=== PATIENT | female | born 1985 | race Caucasian/White ===

== ENCOUNTER 2024-07-07 04:18 | Day surgery (SDC) | payer OTHER ==
[~2024-07-07] VITALS: Ht 177.8 cm; Wt 83.0 kg
[2024-07-07] VITALS (218 sets, daily range): BP systolic 109–170; BP diastolic 69–144
[2024-07-07] MEDS ORDERED: PANTOPRAZOLE SODIUM Sesquihydr 40 MG/TAB PO PRN (06:00)
[2024-07-07] MEDS ORDERED: cloNIDine HCL 0.1 MG/TAB PO PRN (06:00)
[2024-07-07] MEDS ORDERED: LACTATED RINGER'S 1,000 ML IV PRN ×3 (06:00→19:00)
[2024-07-07] MEDS ORDERED: diazePAM 5 MG/TAB PO PRN ×2 (06:00→07:00)
[2024-07-07] MEDS ORDERED: FAMOTIDINE 20 MG/TAB PO PRN (06:00)
[2024-07-07] MEDS ORDERED: CYANOCOBALAMIN 500 MCG/TAB ( B12) PO PRN (06:00)
[2024-07-07] MEDS ORDERED: ALBUTEROL SULFATE 2.5 MG VIAL IN PRN (06:00)
[2024-07-07] MEDS ORDERED: SCOPOLAMINE 1.5 MG DIS TD PRN (06:00)
--- NOTE | 2024-07-07 06:00 | NUR ---
Arrival & Pre-treatment Patient arrived to the [facility] suite, identification and demographics confirmed. Patient to room 8, AAO, ambulatory, vitals obtained, ID/allergy/fall bands placed, changed into hospital gown, DANIELE hose, and non-slip socks. Procedure and timeline explained for treatment and discharge. All questions answered and the patient presents no concerns at this time.
--- NOTE | 2024-07-07 06:40 | NUR ---
Dr. Rojas telephoned with patient intake information including usage, dose, last dose/time taken and initial vital signs. Patient history and allergies reviewed with MD. Orders received for 10 mg PO Valium and 0.2 mg PO Clonidine now. Will reassess per protocol in 1.5 hours and update MD with assessment and vitals. Patient medicated per MD orders. In addition to Clonidine and Valium, patient received 1000 mcg B12 PO, 20 mg Pepcid PO, and Scopolamine TD patch. Medication indication and education provided prior to administration.
--- NOTE | 2024-07-07 06:40 | NUR ---
telephoned with patient intake information including usage, dose, last dose/time taken and initial vital signs. Patient history and allergies reviewed with MD. Orders received for 10mg PO Valium and 0.2 mg PO Clonidine now. Will reassess per protocol in 1.5 hours and update MD with assessment and vitals. Patient medicated per MD orders. In addition to Clonidine and Valium, patient received 1000 mcg B12 PO, 20 mg Pepcid PO, and Scopolamine TD patch. Medication indication and education provided prior to administration.
[2024-07-07] MEDS ORDERED: ASCORBIC ACID 4,000 MG in SODIUM CHLORIDE 0.9% 1,000 ML IV SCH (07:00)
[2024-07-07 07:32] LABS: BASO% 0.7 % (0-3); EOS% 2.6 % (0-8); HEMATOCRIT 34.5 % (39.0-50.0); HEMOGLOBIN 11.2 g/dl (14.0-18.0); IMMATURE GRANULOCYTES 0.2 % (0.0-5.0); LYMPH% 39.8 % (15-41); MEAN CELL VOLUME 103.6 fL CALC (80.0-100.0); MEAN CORPUSCULAR HGB 33.6 pG CALC (26.0-32.0); MEAN CORPUSCULAR HGB CONC 32.5 g/dL CAL (32.0-36.0); MONO% 11.4 % (2-13); NEUT# 2.07 thou/uL (1.82-7.42); NEUT% 45.3 % (42-76); RED BLOOD COUNT 3.33 mill/uL (4.70-6.10); RED CELL DISTRI WIDTH 18.5 % (11.5-15.5)
[2024-07-07 07:49] LABS: ALBUMIN 3.7 g/dL (3.2-5.0); BILIRUBIN, TOTAL 0.6 mg/dL (0.2-1.3); CREATININE 0.5 mg/dL (0.7-1.3); POTASSIUM 4.4 mmol/l (3.5-5.1); TOTAL PROTEIN 6.2 g/dL (6.3-8.2)
--- NOTE | 2024-07-07 07:56 | NUR ---
Patient resting comfortably in bed. Easily aroused, maintains focus, and drifts back to sleep. No signs of active withdrawal or distress noted at this time. Continuous SPO2, rhythm, and respiratory monitoring initiated. IVF @ 250 mL/HR, room air, VSS.
[2024-07-07] MEDS ORDERED: UBRELVY100 MG (08:10)
[2024-07-07] MEDS ORDERED: CYMBALTA30 MG PO (08:11)
[2024-07-07] MEDS ORDERED: MAXALT10 MG PO (08:11)
[2024-07-07] MEDS ORDERED: AMITRIPTYLINE H10 MG PO (08:13)
--- NOTE | 2024-07-07 09:00 | NUR ---
Patients vital signs within pre-treatment parameters for 1.5 hour recheck. No indication for additional Valium or Clonidine as patient is resting comfortably and vital signs are within range.
[2024-07-07] MEDS ORDERED: ONDANSETRON HCl 4 MG/2 ML SDV IV PRN ×3 (09:25→19:00)
[2024-07-07] MEDS ORDERED: STERILE WATER FOR IRRIGATION 1,000 ML BTL IR PRN (09:25)
[2024-07-07] MEDS ORDERED: DiphenhydrAMINE HCL 50 MG/ML SDV IV PRN (09:25)
[2024-07-07] MEDS ORDERED: THIAMINE HCL 100 MG/ML 2ML VIAL IV PRN (09:25)
[2024-07-07] MEDS ORDERED: LIDOCAINE HCL 1% (10MG/ML) 100 MG/10 ML MDV IV PRN (09:25)
[2024-07-07] MEDS ORDERED: diazePAM 5 MG/TAB VT PRN (09:25)
[2024-07-07] MEDS ORDERED: NALTREXONE HCL 50 MG/TAB VT PRN (09:25)
[2024-07-07] MEDS ORDERED: ROCURONIUM BROMIDE 10 MG/ML 5ML VIAL IV PRN (09:25)
[2024-07-07] MEDS ORDERED: MIDAZOLAM HCL 2 MG/2 ML VIAL IV PRN (09:25)
[2024-07-07] MEDS ORDERED: LIDOCAINE HCL 1% (10MG/ML) 100 MG/10 ML MDV VT PRN ×2 (09:25)
[2024-07-07] MEDS ORDERED: DEXAMETHASONE SODIUM PHOSPHATE PF 10 MG/ML SDV IV PRN ×2 (09:25→19:00)
[2024-07-07] MEDS ORDERED: cloNIDine HCL 0.1 MG/TAB VT PRN (09:25)
[2024-07-07] MEDS ORDERED: OCTREOTIDE ACETATE 100 MCG/VIAL SDV SC PRN (09:25)
[2024-07-07] MEDS ORDERED: PROPOFOL 100 ML IV PRN (09:25)
[2024-07-07] MEDS ORDERED: SUCCINYLCHOLINE CHLORIDE 20 MG/ML 10ML VIAL IV PRN (09:25)
[2024-07-07] MEDS ORDERED: MAGNESIUM SULFATE HEPTAHYDRATE 100 ML IV PRN (09:25)
[2024-07-07] MEDS ORDERED: POTASSIUM CHLORIDE 20 MEQ/100 ML BAG IV PRN (09:25)
[2024-07-07] MEDS ORDERED: cloNIDine HYDROCHLORIDE 100 MCG/ML 10 ML INJ IV PRN (09:25)
[2024-07-07] MEDS ORDERED: PROPOFOL 10 MG/ML 100ML VIAL IV PRN (09:25)
[2024-07-07] MEDS ORDERED: PHENYLEPHRINE HCL 10 MG/ML VIAL ONE (09:29)
[2024-07-07] MEDS ORDERED: SODIUM CHLORIDE 0.9% 250 ML IV ONE (09:31)
--- NOTE | 2024-07-07 10:15 | NUR ---
Induction Note Patient to [facility] procedure room. Time out performed at 1016. Patient placed on monitors, Maximilian hugger, bilateral wrist restraints applied for ET tube protection. Versed 5mg given IV push at 1016. Tourniquet applied to RIGHT arm Lidocaine 100mg given at 1017 IV push followed by Rocoronium 10mg at IV push and held for 90 seconds. Propofol bolus of 200mg given at 1020 IV push. Succinylcholine 100mg given IV push at 1021. Smooth intubation with 7.5 ETT. Positive CO2. Positive Auscultation for air exchange. Patient placed on ventilator for spontaneous ventilation. Placed on Propofol IV drip at 1022. OG inserted. Positive air on auscultation. Positive gastric content. Stomach washed at this time.
--- NOTE | 2024-07-07 10:45 | NUR ---
OG close note Stomach washed at this time. Naltrexone 50 mg with Clonidine 0.3 mg via OG tube. OG will be clamped for 45 minutes.
--- NOTE | 2024-07-07 11:30 | NUR ---
OG open note OG open at this time. Gastric content draining into drainage bag. OG to drain for 45 minutes. Propofol will be titrated down based on patient.
[2024-07-07] MEDS ORDERED: MIDAZOLAM HCL 2 MG/2 ML VIAL IV SCH (12:00)
[2024-07-07] MEDS ORDERED: cloNIDine HYDROCHLORIDE 100 MCG/ML 10 ML INJ IV SCH (12:00)
--- NOTE | 2024-07-07 12:15 | NUR ---
OG close note Stomach washed at this time. Naltrexone 50 mg with Clonidine 0.3 mg via OG tube. OG will be clamped for 45 minutes.
[2024-07-07] MEDS ORDERED: NALTREXONE50 MG PO (13:40)
[2024-07-07] MEDS ORDERED: CLONIDINE0.1 MG PO (13:40)
[2024-07-07] MEDS ORDERED: KLONOPIN2 MG PO (13:41)
--- NOTE | 2024-07-07 13:42 | NUR ---
OG close note Stomach washed at this time. Naltrexone 50 mg with Clonidine 0.3 mg via OG tube. OG will be clamped for 45 minutes.
--- NOTE | 2024-07-07 13:45 | NUR ---
OG close note Stomach washed at this time. Naltrexone 50 mg with Clonidine 0.3 mg via OG tube. OG will be clamped for 45 minutes.
--- NOTE | 2024-07-07 15:15 | NUR ---
WAITING TIME / NO CLOSING No OG close at this time. Patient continues to react to treatment. Vitals, total Naltrexone & Clonidine, treatment duration and patient assessment discussed with MD. No orders for medication administration at this time. OG to be left open to gravity.
[2024-07-07] MEDS ORDERED: hydrALAZINE HCL 20 MG/ML VIAL(1 ML) IV SCH (15:30)
--- NOTE | 2024-07-07 16:15 | NUR ---
OG close note Stomach washed at this time. Naltrexone 12.5 mg with Clonidine 0.3 mg via OG tube. OG will be clamped for 45 minutes.
--- NOTE | 2024-07-07 16:45 | NUR ---
OG open note OG open at this time. Gastric content draining into drainage bag. OG to drain for 20-30 minutes. Propofol will be titrated down based on patient.
--- NOTE | 2024-07-07 17:00 | NUR ---
Extubation note Closing medications given Benadryl 50mg IV push, Decadron 10mg IV push,Magnesium 4 grams IV, Zofran 8mg IV push, Octreotide 100mcg SC. Stomach washed out prior to extubation. Suctioned gastric content. OG removed. Patient extubated. Propofol Discontinued. Wrist restraints removed. Maximilian hugger Removed. See ANR Moderate sedate recovery record for further notes and assessment.
--- NOTE | 2024-07-07 17:40 | NUR ---
PT ARRIVED TO [facility] VIA BED NO DISTRESS NOTED. PT ASSISTED TO RESTROOM WITH ONE ASSISTANCE. PT URINATED WITHOUT DIFFICULTY. PT STILL DROWSY BUT ABLE TO FOLLOW SIMPLE COMMANDS. IV FLUSHED WORKING PROPERLY AND LR INFUSION RESTARTED AT 100ML/HR. NURSE TO NURSE REPORT RECEIVED AT BEDSIDE. CALL LIGHT WITHIN REACH. BED ALARM ON. PLAN OF CARE ONGOING.
--- NOTE | 2024-07-07 17:57 | NUR ---
PATIENTS SISTER ORLANDO CONTACTED WITH AN UPDATE. QUESTIONS ASKEED AND ANSWERED.
[2024-07-07] MEDS ORDERED: ACETAMINOPHEN 500 MG TAB PO PRN (19:00)
[2024-07-07] MEDS ORDERED: HALOPERIDOL LACTATE 5 MG/ML SDV IV PRN (19:00)
[2024-07-07] MEDS ORDERED: ACETAMINOPHEN 1,000 MG/100 ML VIAL IV PRN (19:00)
[2024-07-07] MEDS ORDERED: LORazepam 2 MG/ML IV PRN ×2 (19:00)
[2024-07-07] MEDS ORDERED: KETOROLAC TROMETHAMINE 30 MG/ML SDV IV PRN (19:00)
[2024-07-07] MEDS ORDERED: PROMETHAZINE HCL 12.5 MG in SODIUM CHLORIDE 0.9% 50 ML IV PRN (19:00)
[2024-07-07] MEDS ORDERED: PROMETHAZINE HCL 25 MG in SODIUM CHLORIDE 0.9% 50 ML IV PRN (19:00)
[2024-07-07] MEDS ORDERED: PATIENT' OWN MED CONTROLLED 1 EA DOSE IV PRN (21:00)
--- NOTE | 2024-07-07 22:49 | NUR ---
ADMINISTERED SCHEDULED MEDS PER EMAR. PT TOLERATED WELL AND DENIES ANY N/V/P AT THIS TIME. PT DID REQUEST A SNACK, OFFERED CRACKERS AND GINGERALE. ENCOURAGED PT TO EAT SLOW TO NOT UPSET STOMACH. PT IS A/OX3, RM AIR. HUMAN RESOURCES ASSISTANT ASSISTED PT TO BATHROOM, STEADT GAIT WITH STAND BY ASSIST. VOIDED WITHOUT DIFFICULTY. ASSISTED BACK INTO BED. VSS. BED ALARM ON AND SAFETY PRECAUTIONS IN PLACE.
[2024-07-07] MEDS ORDERED: clonazePAM 1 MG/TAB PO PRN (23:00)
[2024-07-07] MEDS ORDERED: cloNIDine HCL 0.1 MG/TAB PO SCH (23:00)
[2024-07-08 03:29] VITALS: BP 121/78
[2024-07-08 03:57] VITALS: BP 121/78
[2024-07-08] MEDS ORDERED: NALTREXONE HCL 50 MG/TAB PO SCH (04:00)
[2024-07-08] MEDS ORDERED: cloNIDine HCL 0.1 MG/TAB PO PRN (04:00)
[2024-07-08] MEDS ORDERED: clonazePAM 1 MG/TAB PO PRN ×2 (04:00→08:00)
--- NOTE | 2024-07-08 04:06 | NUR ---
PT REQUESTING TO USE BATHROOM, MANAGER TRAINEE ASSISTED PT TO BATHROOM WITH STAND BY ASSIST. PT GAIT STEADY, A/OX3, FOLLOW COMMANDS AND ABLE TO KEEP EYES OPEN. OT ABLE TO VOI WIHTOUT DIFFICULTY AND AMBULATED BACK TO BED. ADMINISTERED MEDICATIONS PER EMAR, PT TOLERATED WELL. DENIES ANY N/V AT THIS TIME. PT DOES C/O BACK PAIN, STATES SHE HAS CHRONIC BACK PAIN. ADMINISTERED PAIN MEDICAITON PER EMAR AND HOT PACK WAS PLACED TO LUMBER REGION FOR COMFORT. VSS. NO S/S OF DISTRESS. BED ALARM ON AND SAFETY PRECAUTIONS IN PLACE.
[2024-07-08 06:39] LABS: BASO% 0.1 % (0-3); HEMATOCRIT 35.9 % (39.0-50.0); HEMOGLOBIN 11.8 g/dl (14.0-18.0); IMMATURE GRANULOCYTES 0.4 % (0.0-5.0); LYMPH% 9.1 % (15-41); MEAN CELL VOLUME 103.5 fL CALC (80.0-100.0); MEAN CORPUSCULAR HGB CONC 32.9 g/dL CAL (32.0-36.0); MONO% 6.1 % (2-13); NEUT# 6.05 thou/uL (1.82-7.42); NEUT% 84.3 % (42-76); RED BLOOD COUNT 3.47 mill/uL (4.70-6.10); RED CELL DISTRI WIDTH 18.3 % (11.5-15.5)
[2024-07-08 06:46] LABS: ALBUMIN 3.7 g/dL (3.2-5.0); BILIRUBIN, TOTAL 0.7 mg/dL (0.2-1.3); CREATININE 0.6 mg/dL (0.7-1.3); MAGNESIUM 2.4 mg/dL (1.6-2.3); TOTAL PROTEIN 6.2 g/dL (6.3-8.2)
--- NOTE | 2024-07-08 07:00 | NUR ---
NURSE TO NURSE REPORT RECEIVED AT BEDSIDE NO DISTRESS NOTED. IV FLUID INFUSION ONGOING WORKING PROPERLY. PT EASILY AROUSABLE. CALL LIGHT WITHIN REACH. BED ALARM ON. PLAN OF CARE ONGOING.
[2024-07-08] MEDS ORDERED: PANTOPRAZOLE SODIUM Sesquihydr 40 MG/TAB PO SCH (08:00)
[2024-07-08] MEDS ORDERED: ACETAMINOPHEN 325 MG/TAB PO SCH (08:00)
[2024-07-08] MEDS ORDERED: cloNIDine HCL 0.1 MG/TAB PO SCH (08:00)
--- NOTE | 2024-07-08 08:00 | NUR ---
PT ATE HER FRUIT.
[2024-07-08] MEDS ORDERED: POTASSIUM CHLORIDE 20 MEQ/TAB PO SCH (08:30)
[2024-07-08] MEDS ORDERED: POTASSIUM CHLORIDE 20 MEQ/100 ML BAG IV SCH (08:30)
[2024-07-08] MEDS ORDERED: MAGNESIUM OXIDE 400 MG/TAB PO PRN (09:00)
[2024-07-08] MEDS ORDERED: ACETAMINOPHEN 500 MG TAB PO PRN (09:00)
[2024-07-08] MEDS ORDERED: Cholecalciferol 2,000 UNIT/TAB PO PRN (09:00)
--- NOTE | 2024-07-08 11:11 | NUR ---
PT SHOWERED WITH NO ASSISTANCE AND AMBULATED THE SURESH WITH NURSE BY HER SIDE FOR SAFETY WITH NO ASSISTANCE NEEDED.
[2024-07-08] MEDS ORDERED: KETOROLAC TROMETHAMINE 30 MG/ML SDV IV ONE (11:35)
--- NOTE | 2024-07-08 12:30 | NUR ---
PT RESTING NO DISTRESS NOTED NURSE PROVIDED PT WITH TORADOL FOR A HEADACHE 02/18. PT EATING LUNCH WHICH INCLUDED CHIPS AND A SODA TOLERATED WELL NO NAUSEA OR VOMITING. PT ABLE TO AMBULATE TO RESTROOM WITHOUT ASSISTANCE. CALL LIGHT WITHIN REACH. PLAN OF CARE ONGOING.
--- NOTE | 2024-07-08 14:46 | NUR ---
PT'S BELONGINGS RETURNED TO PT. PT DRESSED HERSELF. IV REMOVED CATHETER TIP INTACT.
--- NOTE | 2024-07-08 15:20 | NUR ---
Discharge instructions given. Patient verbalizes understanding of same. Discharged in good condition via Ambulatory to Home with relative. All belongings sent with pt.
== END 2024-07-08 15:17 | disposition home or self-care (01) | DRG 897 ==
LOC: ANR 04:18 → EDSEX 04:18 → MS2 04:21 → ANR 08:00 → MS2 16:33 → ANR 07-08 15:17
PROVIDERS: ATTEND Anesthesiology Critical Care Medicine
DX: F11.20 Opioid dependence, uncomplicated (principal)
CPT/HCPCS: J0131; J1100; J2060; J2354; J3475; J3490